=== PATIENT | female | born 1985 | race African-American/Black ===

== ENCOUNTER 2021-10-18 08:16 | Outpatient (CLI) | payer BC, SELFPAY ==
--- NOTE | 2021-10-18 11:00 | NEURO_ITS ---
Impression: # Complains of cramping of hands with numbness and tingling. # This electrodiagnostic study is abnormal due to the presence of mild bilateral Carpal Tunnel Syndrome. # Needle/EMG exam was normal. Nerve Conduction Studies Anti Sensory Summary Table Stim Site NR Peak (ms) P-T Amp (?V) Site1 Site2 Delta-P (ms) Dist (cm) Ajay (m/s) Left Median Anti Sensory (2-3nd Digit) Wrist 3.8 87.3 Wrist 2-3nd Digit 3.8 14.0 37 Wrist 3.7 78.4 Wrist 2-3nd Digit 3.8 14.0 37 Right Median Anti Sensory (2-3nd Digit) Wrist 3.9 28.9 Wrist 2-3nd Digit 3.9 14.0 36 Wrist 3.8 42.8 Wrist 2-3nd Digit 3.9 14.0 36 Left Radial Anti Sensory (Base 1st Digit) Wrist 2.3 29.0 Wrist Base 1st Digit 2.3 0.0 Right Radial Anti Sensory (Base 1st Digit) Wrist 2.4 63.5 Wrist Base 1st Digit 2.4 0.0 Left Ulnar Anti Sensory (5th Digit) Wrist 2.4 15.0 Wrist 5th Digit 2.4 14.0 58 Right Ulnar Anti Sensory (5th Digit) Wrist 2.5 15.3 Wrist 5th Digit 2.5 14.0 56 Motor Summary Table Stim Site NR Onset (ms) O-P Amp (mV) Site1 Site2 Delta-0 (ms) Dist (cm) Ajay (m/s) Left Median Motor (Abd Poll Brev) Wrist 3.4 9.1 Elbow Wrist 3.9 22.0 56 Elbow 7.3 8.9 Right Median Motor Run #1 (Abd Poll Brev) Wrist 13.8 0.0 Elbow Wrist 5.8 26.0 45 Elbow 8.0 7.3 ELB/ADM Wrist 9.1 0.0 ELB/ADM 4.7 2.9 Right Median Motor Run #2 (Abd Poll Brev) Wrist 3.7 6.8 Elbow Wrist 4.6 26.0 57 Elbow 8.3 2.0 Left Ulnar Motor (Abd Dig Minimi) Wrist 2.6 5.4 A Elbow Wrist 4.8 29.0 60 A Elbow 7.4 5.6 B Elbow Wrist 3.7 23.0 62 B Elbow 6.3 6.7 Right Ulnar Motor (Abd Dig Minimi) Wrist 2.7 5.0 A Elbow Wrist 5.1 33.0 65 A Elbow 7.8 4.6 B Elbow Wrist 4.0 25.0 63 B Elbow 6.7 4.8 F Wave Studies NR F-Lat (ms) L-R F-Lat (ms) Left Median (Mrkrs) (Abd Poll Brev) 27.09 0.80 Right Median (Mrkrs) (Abd Poll Brev) 27.89 0.80 Left Ulnar (Mrkrs) (Abd Dig Min) 26.78 0.00 Right Ulnar (Mrkrs) (Abd Dig Min) 26.78 0.00 EMG Side Muscle Nerve Root Ins Act Fibs Amp Dur Recrt Comment Right 1stDorInt Ulnar C8-T1 Nml Nml Nml Nml Nml Right Ext Indicis Radial (Post Int) C7-8 Nml Nml Nml Nml Nml Right Ext Digitorum Radial (Post Int) C7-8 Nml Nml Nml Nml Nml Right BrachioRad Radial C5-6 Nml Nml Nml Nml Nml Right PronatorTeres Median C6-7 Nml Nml Nml Nml Nml Right Abd Poll Brev Median C8-T1 Nml Nml Nml Nml Nml Left 1stDorInt Ulnar C8-T1 Nml Nml Nml Nml Nml Left Ext Indicis Radial (Post Int) C7-8 Nml Nml Nml Nml Nml Left Ext Digitorum Radial (Post Int) C7-8 Nml Nml Nml Nml Nml Left BrachioRad Radial C5-6 Nml Nml Nml Nml Nml Left PronatorTeres Median C6-7 Nml Nml Nml Nml Nml Left Abd Poll Brev Median C8-T1 Nml Nml Nml Nml Nml MTDD
== END 2021-10-18 08:17 | disposition home or self-care (01) ==
PROVIDERS: PCP Physician Assistant; Visit Provider Orthopaedic Surgery
DX: G56.03 Carpal tunnel syndrome, bilateral upper limbs (principal)
CPT/HCPCS: 95886; 95911

== ENCOUNTER 2021-11-23 09:18 | Outpatient (CLI) | payer BC, SELFPAY ==
--- NOTE | 2021-11-23 11:00 | NEURO_ITS ---
Impression: # Complains of pain in lower extremities. # Normal nerve conduction study. # Normal needle/EMG exam. # Clinical correlation recommended. Nerve Conduction Studies Anti Sensory Summary Table Stim Site NR Peak (ms) P-T Amp (?V) Site1 Site2 Delta-P (ms) Dist (cm) Ajay (m/s) Left Sup Fibular Anti Sensory (Ant Lat Mall) 14 cm 3.0 8.2 14 cm Ant Lat Mall 3.0 16.0 53 Right Sup Fibular Anti Sensory (Ant Lat Mall) 14 cm 3.8 18.5 14 cm Ant Lat Mall 3.8 16.0 42 Left Sural Anti Sensory (Lat Mall) Calf 3.3 9.6 Calf Lat Mall 3.3 16.0 48 Right Sural Anti Sensory (Lat Mall) Calf 3.8 17.1 Calf Lat Mall 3.8 16.0 42 Motor Summary Table Stim Site NR Onset (ms) O-P Amp (mV) Site1 Site2 Delta-0 (ms) Dist (cm) Ajay (m/s) Left Peroneal Motor (Vastus Med) Ankle 4.0 5.1 Popit Ankle 8.0 40.0 50 Popit 12.0 3.4 Right Peroneal Motor (Vastus Med) Ankle 4.4 2.9 Popit Ankle 7.7 38.0 49 Popit 12.1 2.2 Left Tibial Motor (Abd James Brev) Ankle 4.8 7.7 Knee Ankle 8.4 41.0 49 Knee 13.2 6.7 Right Tibial Motor (Abd James Brev) Ankle 4.7 7.9 Knee Ankle 8.5 40.0 47 Knee 13.2 8.0 F Wave Studies NR F-Lat (ms) L-R F-Lat (ms) Left Peroneal (Mrkrs) (EDB) 51.71 0.87 Right Peroneal (Mrkrs) (EDB) 52.58 0.87 Left Tibial (Mrkrs) (Abd Hallucis) 53.68 0.58 Right Tibial (Mrkrs) (Abd Hallucis) 53.10 0.58 EMG Side Muscle Nerve Root Ins Act Fibs Amp Dur Recrt Comment Right AntTibialis Dp Br Fibular L4-5 Nml Nml Nml Nml Nml Right Gastroc Tibial S1-2 Nml Nml Nml Nml Nml Right Fibularis Long Sup Br Fibular L5-S1 Nml Nml Nml Nml Nml Right Flex Dig Long Tibial L5-S2 Nml Nml Nml Nml Nml Right Ext Dig Brev Dp Br Fibular L5, S1 Nml Nml Nml Nml Nml Left AntTibialis Dp Br Fibular L4-5 Nml Nml Nml Nml Nml Left Gastroc Tibial S1-2 Nml Nml Nml Nml Nml Left Fibularis Long Sup Br Fibular L5-S1 Nml Nml Nml Nml Nml Left Flex Dig Long Tibial L5-S2 Nml Nml Nml Nml Nml Left Ext Dig Brev Dp Br Fibular L5, S1 Nml Nml Nml Nml Nml MTDD
== END 2021-11-23 09:19 | disposition home or self-care (01) ==
PROVIDERS: PCP Physician Assistant; Visit Provider Orthopaedic Surgery
DX: M25.561 Pain in right knee (principal); M25.562 Pain in left knee
CPT/HCPCS: 95886; 95910